=== PATIENT | female | born 1935 | race Caucasian/White ===

== ENCOUNTER → 2017-03-05 | Outpatient (CLI) | payer OTHER ==
[2017-03-05 13:35] LABS: ALT/SGPT 18 U/L (12-78); BLOOD UREA NITROGEN 13 mg/dl (7-18); BUN/CREATININE RATIO 15.6 (10-20); CALCIUM 9.3 mg/dl (8.5-10.1); CARBON DIOXIDE 29 mmol/L (21-32); CHLORIDE 106 mmol/L (98-107); CREATININE 0.85 mg/dl (0.60-1.20); GLUCOSE 79 mg/dl (70-99); POTASSIUM 4.1 mmol/L (3.5-5.1); SODIUM 140 mmol/L (136-145)
[2017-03-05 13:45] LABS: ALB/GLOB RATIO 1.2 (0.9-2); ALKALINE PHOSPHATASE 73 U/L (45-117); AST/SGOT 12 U/L (15-37)
== END | disposition home or self-care (01) ==
LOC: C.LAB1850 10:09
PROVIDERS: ATTEND Internal Medicine
DX: E55.9 Vitamin D deficiency, unspecified (principal); E53.8 Deficiency of other specified B group vitamins; E21.3 Hyperparathyroidism, unspecified; F32.9 Major depressive disorder, single episode, unspecified

== ENCOUNTER → 2017-05-10 | Outpatient (CLI) | payer OTHER ==
[2017-05-10 10:34] LABS: BASO % 0.4 %; BASO ABS # 0.02 K/uL (0-0.2); COMPLETE YES; EOS % 3.4 %; IG% 0.2 %; LYMPH % 37.1 %; LYMPH ABS # 1.73 K/uL (1.2-3.4); MEAN CELL VOLUME 102.7 fL (80-100); MEAN CORPUSCULAR HEMOGLOBIN 33.8 pg (25-34); MEAN CORPUSCULAR HGB CONC 32.9 g/dl (32-36); MEAN PLATELET VOLUME 9.4 fL (7.4-10.4); MONO % 6.7 %; NEUT % 52.2 %; PLATELET COUNT 218 K/uL (130-400); WHITE BLOOD COUNT 4.66 K/uL (4.8-10.8)
[2017-05-10 10:41] LABS: CHOLESTEROL/HDL RATIO 3.4
== END | disposition home or self-care (01) ==
LOC: C.LABBC 08:05
PROVIDERS: ATTEND Psychiatry & Neurology Geriatric Psychiatry
DX: Z79.899 Other long term (current) drug therapy (principal)

== ENCOUNTER → 2017-07-24 | Outpatient (CLI) | payer OTHER ==
--- NOTE | 2017-07-24 16:09 | MAMMOGRAPHY REPORT ---
BILATERAL DIGITAL SCREENING MAMMOGRAM WITH CAD: 07/24/2017 CLINICAL HISTORY: Routine screening. Patient has no complaints. TECHNIQUE: Bilateral CC and MLO views were obtained. Current study was also evaluated with a Compute r Aided Detection (CAD) system. COMPARISON: Comparison is made to exams dated: 06/16/2016 mammogram, 04/10/2012 mammogram - [facility], 06/05/2011 mammogram - [facility], 12/31/2008, and 12/28/2008. BREAST COMPOSITION: There are scattered areas of fibroglandular density in both breasts. FINDINGS: The parenchymal pattern is unchanged. No developing mass, architectural distortion or clus ter of suspicious microcalcifications is seen in either breast. IMPRESSION: ACR BI-RADS CATEGORY 2: BENIGN There is no mammographic evidence of malignancy. A 1 year screening mammogram is recommended. The pa tient will receive written notification of the results. Approximately 10% of breast cancers are not detected with mammography. A negative mammographic report should not delay biopsy if a clinically suggestive mass is present. Tawanna Bonner M.D. ay/:07/24/2017 15:28:32 Coat Examiner: Joanna Enamorado RT(R)(M), [facility] letter sent: Normal 1/2 BI-RADS Code: ACR BI-RADS Category 2: Benign
== END | disposition home or self-care (01) ==
LOC: C.MAMM 14:27
PROVIDERS: ATTEND Internal Medicine
DX: Z12.31 Encounter for screening mammogram for malignant neoplasm of breast (principal)